=== PATIENT | female | born 1980 | race Caucasian/White ===

== ENCOUNTER 2023-06-20 11:23 | Day surgery (SDC) | payer OTHER ==
[~2023-06-20] VITALS: Ht 167.6 cm; Wt 96.6 kg
[~2023-06-20 11:23] MED LIST: LIDOCAINE 2%, 20 ML MDV ONE; NORMAL SALINE 10 ML VIAL ONE; iopamidoL 50 ML VIAL IV ONE; methylPREDNISolone ACETATE 40 MG/ML ONE
[2023-06-20 12:20] LABS: HCG,QUAL RESULT NEGATIVE (NEGATIVE)
[2023-06-20] MEDS ORDERED: DIPHENHYDRAMINE INJ 50 MG/ML VIAL ONE (12:43)
[2023-06-20] MEDS ORDERED: MIDAZOLAM HCL 5 MG/5 ML VIAL ONE (12:44)
[2023-06-20] MEDS ORDERED: fentaNYL CITRATE/PF 100 MCG/2 ML AMP ONE (12:44)
[2023-06-20] MEDS: DIPHENHYDRAMINE INJ 50 MG/ML VIAL ONE (13:32)
[2023-06-20 14:20] VITALS: O2SAT 98
[2023-06-20 17:32] VITALS: BP_SYST 126; PULSE 66; RESP 16
== END 2023-06-20 14:32 | disposition home or self-care (01) ==
LOC: SDS 11:23 → SMU 11:24 → SDS 14:32
PROVIDERS: ATTEND Internal Medicine
DX: M51.16 Intervertebral disc disorders with radiculopathy, lumbar region (principal); M51.9 Unspecified thoracic, thoracolumbar and lumbosacral intervertebral disc disorder; G89.29 Other chronic pain; Z79.899 Other long term (current) drug therapy; Z98.891 History of uterine scar from previous surgery
CPT/HCPCS: 62323; 84703; J1200; J1030; J2250; J3010; Q9967; 76000; J2001